=== PATIENT | male | born 1960 | race Two or more races ===

== ENCOUNTER 2019-02-28 04:11 | Emergency (ER) | payer BC ==
[~2019-02-28] VITALS: Ht 170.2 cm; Wt 68.0 kg
[2019-02-28] MEDS ORDERED: PERCOCET 5-3251 EACH PO (06:34)
[2019-02-28] MEDS ORDERED: TORADOL PO (06:34)
== END 2019-02-28 07:18 | disposition home or self-care (01) ==
LOC: ER 04:11
DX: R10.11 Right upper quadrant pain (principal); R10.31 Right lower quadrant pain

== ENCOUNTER → 2019-02-28 | Emergency (ER) | payer BC ==
[~2019-02-28] VITALS: Ht 170.2 cm; Wt 68.0 kg
[~2019-02-28] MED LIST: PERCOCET 5-3251 EACH PO; TORADOL PO
== END | disposition home or self-care (01) ==
LOC: ER 11:29
DX: N20.2 Calculus of kidney with calculus of ureter (principal); K80.80 Other cholelithiasis without obstruction